=== PATIENT | female | born 1965 | race Two or more races ===

== ENCOUNTER 2016-08-08 06:00 | Inpatient (IN) | payer MEDICAID ==
[2016-08-08] MEDS ORDERED: XANAX1 M1 PO (06:48)
[2016-08-08] MEDS ORDERED: ABILIFY15 M1 PO (06:49)
[2016-08-08] MEDS ORDERED: TEGRETOL XR200 M1 PO (06:50)
[2016-08-08] MEDS ORDERED: CYCLOBENZAPRINE10 M1 PO (06:51)
[2016-08-08] MEDS ORDERED: CYMBALTA60 M1 PO (06:52)
[2016-08-08] MEDS ORDERED: GAS RELIEF125 M5 PO (06:53)
[2016-08-08] MEDS ORDERED: HYDROCODON-ACE1 EA15 PO (06:55)
[2016-08-08] MEDS ORDERED: CORTISONE28 GM TOP (06:56)
[2016-08-08] MEDS ORDERED: DILAUDID4 M1 PO (06:57)
[2016-08-08] MEDS ORDERED: ISOSORBIDE MONO60 M3 PO (06:59)
[2016-08-08] MEDS ORDERED: SYNTHROID50 MC1 PO (07:01)
[2016-08-08] MEDS ORDERED: LIDOCAINE1 EACH TOP (07:02)
[2016-08-08] MEDS ORDERED: LYRICA150 MG/CAP PO (07:03)
[2016-08-08] MEDS ORDERED: NITROSTAT0.4 MG/TAB SL (07:04)
[2016-08-08] MEDS ORDERED: GLUCOPHAGE1000 M1 PO (07:04)
[2016-08-08] MEDS ORDERED: ZYPREXA5 M1 PO (07:06)
[2016-08-08] MEDS ORDERED: PATANASE30.5 G1 (07:07)
[2016-08-08] MEDS ORDERED: OMEPRAZOLE20 M4 PO (07:08)
[2016-08-08] MEDS ORDERED: PAXIL40 M1 PO (07:08)
[2016-08-08] MEDS ORDERED: GAVILAX PO (07:10)
[2016-08-08] MEDS ORDERED: PROPRANOLOL HCL40 M2 PO (07:10)
[2016-08-08] MEDS ORDERED: SIMETHICONE80 M3 PO (07:11)
[2016-08-08] MEDS ORDERED: TOPAMAX100 M2 PO (07:11)
[2016-08-08] MEDS ORDERED: VITAMIN D-32000 UNI4 PO (07:12)
[2016-08-08] MEDS ORDERED: VESICARE5 M1 PO (07:12)
[2016-08-08] MEDS ORDERED: ZALEPLON10 M1 PO (07:12)
[2016-08-09 05:42] LABS: BASO % 0.3 % (0-2); EOS % 2.7 % (0-7); EOSINOPHIL ABSOLUTE COUNT 0.3 tho/cmm (0.0-0.7); HCT-HEMATOCRIT 32.3 % (34.0-49.0); HGB-HEMOGLOBIN 10.2 gm/dl (12.0-15.5); IMMATURE GRANULOCYTES ABSOLUTE 0.02 tho/cmm (0-0.03); IMMATURE GRANULOCYTES PERCENT 0.2 % (0-0.3); LYMPH % 19.8 % (20-45); MCH (MEAN CORPUSCULAR HGB) 27.6 pg (28.0-32.0); MCHC MEAN CORPUSCULAR HGB CONC 31.6 % (32.0-36.0); MCV (MEAN CELL VOLUME) 87.3 fl (82.0-96.0); MEAN PLATELET VOLUME 10.6 cmc (9.4-12.4); MONO % 7.4 % (0-12); MONOCYTE ABSOLUTE COUNT 0.7 tho/cmm (0.0-1.2); NEUTROPHILS % 69.6 % (40-80); PLATELET COUNT 317 tho/cmm (150-450); RED CELL DISTRIBUTION WIDTH 13.5 % (12.4-16.4)
[2016-08-09 05:54] LABS: ANION GAP 11 mmol/L (0-20); BLOOD UREA NITROGEN 14 mg/dl (6-24); CALCIUM 8.2 mg/dl (8.5-10.5); CARBON DIOXIDE-VENOUS 24 mmol/L (22-32); CHLORIDE 107 mmol/l (96-110); CREATININE 0.88 mg/dl (0.50-1.10); GLUCOSE 141 mg/dL (70-110); POTASSIUM 4.1 mmol/L (3.7-5.1); SODIUM 138 mmol/L (135-145); eGFR VALUE FOR BLACK 87 mL/Min
[2016-08-10] MEDS ORDERED: ASPIRIN325 M3 PO (10:41)
[2016-08-10] MEDS ORDERED: MOBIC7.5 M2 PO (10:42)
[2016-08-10] MEDS ORDERED: NORCO 5-325 TA1 EACH PO (10:43)
[2016-08-10] MEDS ORDERED: ULTRAM50 M1 PO (10:45)
[2016-08-10] MEDS ORDERED: SENNA-S TABLET1 EAC3 PO (10:53)
[2016-11-23] MEDS ORDERED: HYDROCODON-ACE1 EA15 PO (13:54)
[2016-11-23] MEDS ORDERED: GAS RELIEF125 M5 PO (13:57)
[2016-11-23] MEDS ORDERED: LYRICA150 MG/CAP PO (13:59)
[2016-11-23] MEDS ORDERED: GLUCOPHAGE1000 M1 PO (13:59)
[2016-11-23] MEDS ORDERED: NITROSTAT0.4 M1 PO (13:59)
[2016-11-23] MEDS ORDERED: ZYPREXA10 M1 PO (14:00)
[2016-11-23] MEDS ORDERED: OLOPATADINE H30.5 GM (14:01)
[2016-11-23] MEDS ORDERED: OMEPRAZOLE20 M4 PO (14:02)
[2016-11-23] MEDS ORDERED: PAXIL10 M1 PO (14:03)
[2016-11-23] MEDS ORDERED: PHENTERMINE HCL15 M1 PO (14:04)
[2016-11-23] MEDS ORDERED: POLYETHYLENE G255 G1 PO (14:04)
[2016-11-23] MEDS ORDERED: PROPRANOLOL HCL40 M2 PO (14:04)
[2016-11-23] MEDS ORDERED: VITAMIN D32000 UNI3 PO (14:05)
[2016-11-28] MEDS ORDERED: ASPIRIN325 M3 PO (11:40)
[2016-11-28] MEDS ORDERED: MOBIC7.5 M2 PO (11:45)
== END 2016-08-10 15:05 | disposition home health service (06) | DRG 470 ==
LOC: SHSB 06:00 → ORE 07:47 → PACU 09:52 → 5EA 11:15
PROVIDERS: Internal Medicine; Physician Assistant; ADMIT Orthopaedic Surgery
PROC: 0SRC0JZ Replacement of Right Knee Joint with Synthetic Substitute, Open Approach (ICD-10-PCS; principal; 2016-08-08)
DX: M17.11 Unilateral primary osteoarthritis, right knee (principal); I10 Essential (primary) hypertension; E11.9 Type 2 diabetes mellitus without complications; Z79.84 Long term (current) use of oral hypoglycemic drugs; K21.9 Gastro-esophageal reflux disease without esophagitis; F43.10 Post-traumatic stress disorder, unspecified; G40.909 Epilepsy, unspecified, not intractable, without status epilepticus; K59.00 Constipation, unspecified
CPT/HCPCS: C1713; C1776; J0171; J0690; J1815; J1885; J2270; J2795; J3010